=== PATIENT | male | born 1985 | race Caucasian/White ===

== ENCOUNTER 2018-12-03 09:09 | Emergency (ER) | payer BC ==
--- NOTE | 2018-12-03 10:03 | EDM.PDOC ---
ED HPI GENERAL MEDICAL PROBLEM - General Chief Complaint: General Stated Complaint: RACING HEART BEAT FOR A FEW DAYS Time Seen by Provider: 12/03/18 09:46 Source of Information: Reports: Patient, RN Notes Reviewed History Limitations: Reports: No Limitations - History of Present Illness INITIAL COMMENTS - FREE TEXT/NARRATIVE: The patient states that he has been experiencing a sensation of an elevated heart rate for the past 2 weeks. He feels that it is there all the time, including here in the ED - his HR is 119 on the monitor. The heartbeat feels regular, although occasionally it feels stronger than usual. He denies associated chest pain, dyspnea, lightheadedness, nausea, diaphoresis, or anxiety. The patient states that he has had similar symptoms in the past, but only occasionally. The patient states that he saw his PCP about this issue last week. Bloodwork, including a CMP, TSH level, and lipid panel were obtained on 11/29/2018. The results were available on the patient's cell phone, and all were unremarkable, with the exception of his TSH being slightly low at 0.29. The patient states that he used to drink one Monster energy drink daily, but stopped drinking all caffeinated beverages about 2 weeks ago, 2 days prior to the onset of his palpitations. The patient's PCP is Dr. Abdi Jimenez. Back Pain Score (Numeric/FACES): 6 - Related Data Allergies Allergy/AdvReac Type Severity Reaction Status Date / Time aspirin Allergy Swelling Verified 12/03/18 09:21 Home Meds: Home Meds Fluticasone/Salmeterol [Advair 100-50] 1 puff INH QAM 12/03/18 [History] Hydrocodone/Acetaminophen [[place] 10-325 Tablet] 1 each PO TID 12/03/18 [History] Omeprazole Magnesium [Prilosec Otc] 20 mg PO QPM 12/03/18 [History] Past Medical History Respiratory History: Reports: Asthma Musculoskeletal History: Reports: Fracture (facial bones) - Past Surgical History HEENT Surgical History: Reports: Oral Surgery (3 wisdom teeth extracted), Other (See Below) (Facial reconstructive surgery) Social & Family History - Tobacco Use Smoking Status *Q: Never Smoker Second Hand Smoke Exposure: No - Caffeine Use Caffeine Use: Reports: None - Alcohol Use Alcohol Use History: No - Recreational Drug Use Recreational Drug Use: Yes Drug Use in Last 12 Months: No Recreational Drug Type: Reports: Cocaine (last snorted when 18 years old), Marijuana/Hashish (last smoked when 18 years old), Mescaline (last took when 18 years old), Psilocybin (Mushrooms) (last ate when 18 years old) - Living Situation & Occupation Living situation: Reports: Single (Engaged), Alone (Fiance and son currently in [place]) Occupation: Employed (residential team leader) ED ROS GENERAL - Review of Systems Review Of Systems: ROS reveals no pertinent complaints other than HPI. ED EXAM, GENERAL - Physical Exam Exam: See Below Exam Limited By: No Limitations General Appearance: Alert, WD/WN, No Apparent Distress Eye Exam: Bilateral Eye: EOMI, Normal Inspection Ears: Normal External Exam, Hearing Grossly Normal Nose: Normal Inspection Throat/Mouth: Normal Inspection, Normal Lips, Normal Voice, No Airway Compromise Head: Atraumatic, Normocephalic Neck: Normal Inspection, Full Range of Motion Respiratory/Chest: No Respiratory Distress, Lungs Clear, Normal Breath Sounds, No Accessory Muscle Use Cardiovascular: Normal Peripheral Pulses, No Edema, No Gallop, No JVD, No Murmur , No Rub, Tachycardia (regular) Peripheral Pulses: 4+: Radial (L), Radial (R) GI/Abdominal: Normal Bowel Sounds, Soft, Non-Tender, No Organomegaly, No Distention, No Abnormal Bruit, No Mass (Male) Exam: Deferred Rectal (Males) Exam: Deferred Back Exam: Normal Inspection, Full Range of Motion, NT Extremities: Normal Inspection, Normal Range of Motion, No Pedal Edema, Normal Capillary Refill Neurological: Alert, Oriented, Normal Cognition, No Motor/Sensory Deficits Psychiatric: Normal Affect Skin Exam: Warm, Dry, Intact, Normal Color, No Rash EKG INTERPRETATION EKG Date: 12/03/18 Time: 09:38 Rhythm: Other (Sinus arrhythmia, with sinus tachycardia with pauses) Rate (Beats/Min): 96 [place]: Normal P-Wave: Present QRS: Normal (Early transition) ST-T: Normal QT: Normal Comparison: NA - No Prior EKG Course - Vital Signs Last Recorded V/S: Last Vital Signs Temp 36.4 C 12/03/18 09:17 Pulse 119 H 12/03/18 09:17 Resp 15 12/03/18 09:17 BP 136/84 12/03/18 09:17 Pulse Ox 0 L 12/03/18 09:17 Orthostatic Blood Pressure [ 131/87 Standing] Orthostatic Blood Pressure [ 117/79 Sitting] Orthostatic Blood Pressure [ 116/74 Supine] - Orders/Labs/Meds Orders: Active Orders 24 hr Category Date Time Status EKG Documentation Completion [RC] STAT Care 12/03/18 10:01 Active Orthostatic Vital Signs [RC] STAT Care 12/03/18 10:01 Active Labs: Laboratory Tests 12/03/18 12/03/18 12/03/18 Range/Units 10:10 10:10 10:10 WBC 7.65 (4.23-9.07) K/mm3 RBC 5.28 (4.63-6.08) M/mm3 Hgb 14.6 (13.7-17.5) gm/L Hct 42.3 (40.1-51.0) % MCV 80.1 (79.0-92.2) fl MCH 27.7 (25.7-32.2) pg MCHC 34.5 (32.2-35.5) g/dl RDW Std Deviation 36.4 (35.1-43.9) fL Plt Count 324 (163-337) K/mm3 MPV 9.5 (9.4-12.3) fl Neutrophils % (Manual) 67 H (40-60) % Band Neutrophils % 0 (0-10) % Lymphocytes % (Manual) 27 (20-40) % Atypical Lymphs % 0 % Monocytes % (Manual) 3 (2-10) % Eosinophils % (Manual) 3 (0.8-7.0) % Basophils % (Manual) 0 L (0.2-1.2) Platelet Estimate Adequate RBC Morph Comment Normal D-Dimer, Quantitative < 0.19 L (0.19-0.50) mg/L Sodium 141 (136-145) mEq/L Potassium 3.3 L (3.5-5.1) mEq/L Chloride 105 (98-107) mEq/L Carbon Dioxide 28 (21-32) mEq/L Anion Gap 11.3 (5-15) BUN 14 (7-18) mg/dL Creatinine 0.9 (0.7-1.3) mg/dL Est Cr Clr Drug Dosing 117.83 mL/min Estimated GFR (MDRD) > 60 (>60) mL/min BUN/Creatinine Ratio 15.6 (14-18) Glucose 101 (74-106) mg/dL Calcium 9.1 (8.5-10.1) mg/dL Magnesium 2.3 (1.8-2.4) mg/dl Troponin I < 0.017 (0.00-0.056) ng/mL - Re-Assessments/Exams Free Text/Narrative Re-Assessment/Exam: 12/03/18 10:25 The patient is not orthostatic. 12/03/18 10:58 Test results discussed with the patient. Today's workup, with the exception of potassium slightly low at 3.3, is entirely unremarkable. Most importantly, the patient's D-dimer is undetectable below, essentially ruling out a PE as the cause of his tachycardia. I cannot say what the cause of his tachycardia is, but it does not appear to be anything serious. I explained to the patient that sinus tachycardia is a symptom, not a disease, and does not itself get treated. I will have him follow-up with his PCP. Departure - Departure Time of Disposition: 10:59 Disposition: Home, Self-Care 01 Condition: Good Clinical Impression: Sinus tachycardia - Discharge Information *PRESCRIPTION DRUG MONITORING PROGRAM REVIEWED*: Not Applicable *COPY OF PRESCRIPTION DRUG MONITORING REPORT IN PATIENT LJ: Not Applicable Referrals: Abdi Jimenez Jr, MD [Ordering Only Provider] - Forms: ED Department Discharge Additional Instructions: You were seen in the emergency room for 2 weeks of an elevated heart rate. Workup in the ER included blood work, positional blood pressure checks, and an ECG. Your potassium return mildly low at 3.3. We recommend that you consume some foods with potassium, such as tomatoes or leafy green vegetables. The remainder of your workup was entirely unremarkable, and does not explain the cause of your elevated heart rate. You do not have a blood clot in your lungs. You have not suffered a heart attack. You are not dehydrated. There were no other electrolyte abnormalities. Your ECG demonstrated a sinus arrhythmia, meaning that your heart sped up and slowed down. This condition is usually the symptom of some other cause, and does not receive treatment itself. Follow-up with your PCP, Dr. Abdi Jimenez, for further evaluation. If any other problems, please do not hesitate to return to the ER. - My Orders Last 24 Hours: My Active Orders 12/03/18 10:01 EKG Documentation Completion [RC] STAT Orthostatic Vital Signs [RC] STAT - Assessment/Plan Last 24 Hours: My Active Orders 12/03/18 10:01 EKG Documentation Completion [RC] STAT Orthostatic Vital Signs [RC] STAT
== END 2018-12-03 11:15 | disposition home or self-care (01) ==
LOC: JD.ED 09:09
DX: R00.0 Tachycardia, unspecified (principal); J45.909 Unspecified asthma, uncomplicated; Z88.8 Allergy status to other drugs, medicaments and biological substances; Z79.899 Other long term (current) drug therapy
CPT/HCPCS: 36415; 80048; 83735; 84484; 85007; 85027; 85379; 93005; 93010; 99284; 99285-25